=== PATIENT | female | born 1960 | race Caucasian/White ===

== ENCOUNTER → 2020-01-18 | Outpatient (CLI) | payer MEDICARE, BC ==
[~2020-01-18] MED LIST: AMITRIPTYLINE H10 M1 PO; AMLODIPINE BESY10 MG PO; CARVEDILOL12.5 MG PO; CARVEDILOL25 MG PO; COLACE 100 MG100 MG PO; DIALYVITE 8000.8 M1 PO; FLONASE 0.05%50 MCG NASAL; LANTUS SUBQ; LIPITOR 40 MG T40 M1 PO; NEXIUM20 MG PO; NOVOLOG100 UNIT/1 SUBQ; PROAIR HFA8.5 GM INH; ROCALTROL0.25 MCG PO; SENNA PLUS 8.61 EACH PO; SYMBICORT160 MCG/4. INH; TAMSULOSIN HCL0.4 MG PO; VITAMIN D21250 MC1 PO; VITAMIN D350 MC3 PO; ZYRTEC10 M2 PO
== END ==
LOC: M.LAB 10:40
PROVIDERS: ATTEND Internal Medicine Gastroenterology
DX: Z01.812 Encounter for preprocedural laboratory examination (principal); Z11.59 Encounter for screening for other viral diseases; K21.9 Gastro-esophageal reflux disease without esophagitis

== ENCOUNTER → 2020-01-23 | Day surgery (SDC) | payer MEDICARE, BC ==
[~2020-01-23] MED LIST changes: +VITAMIN D3 COM1 EACH PO
--- NOTE | ~2020-01-23 | PROC ---
[address] [address] PROCEDURE REPORT Name: ULISES ESCALANTE Room: [facility].#: [id number] Admission: 01/23/20 Attend Phys: Bradley Carl MD Discharge: Date of : 56 Report #: [id number] THIS REPORT FOR: //name// cc: Camelia Islas MD, Ghazal A. MD ~ THIS REPORT FOR: //name// For GI report, please see the [employer] report in [employer] content. By: 0658Medical Records Staff LENARD /TITA
[2020-01-23 08:56] LABS: HEMATOCRIT 34.3 % (37.0-47.0); MCH 31.4 pg (26.0-34.0); MCHC 35.1 g/dL (28.0-37.0); MCV 89.4 fL (80.0-100.0); MPV 6.8 fl. (7.2-11.1); RBC 3.84 mil/uL (4.20-5.00); RDW-CV 13.9 % (10.5-14.5); WBC 8.6 thou/uL (4.0-11.0)
[2020-01-23 09:07] LABS: CALCIUM 8.8 mg/dL (8.5-10.1); POTASSIUM 3.8 mmol/L (3.5-5.1)
--- NOTE | 2020-01-24 17:33 | EKG ---
[place] [address] ELECTROCARDIOGRAM REPORT Name: ULISES ESCALANTE Room: [facility]#: [id number] Admission: 01/23/20 Attend Phys: Bradley Carl, Discharge: Date of : 56 Date of Service: 01/23/20920 Report #: [id number] THIS REPORT FOR: //name// [facility] Test Date: 2020-01-23 Test Time: 09:21:00 Pat Name: ULISES ESCALANTE Department: Room: Gender: F Shift Commander: : 1960 Requested By: Ricardo Malagon Order Number: [id number] Shaila MD: Miguelangel Loja Measurements Intervals [place] Rate: 72 P: 38 [place]: 175 QRS: 1 QRSD: 90 T: 54 QT: 423 QTc: 463 Interpretive Statements Sinus rhythm No previous ECG available for comparison Electronically Signed On 01-24-2020 17:33:02 CDT by Miguelangel Loja [email or web address] <ELECTRONICALLY SIGNED> By: Miguelangel Loja MD, [facility] 01/24/20 1733 0 0 Miguelangel Loja MD, FACC /EPI
== END | disposition home or self-care (01) ==
LOC: M.SUR 08:40
PROVIDERS: Anesthesiology; ATTEND Internal Medicine Gastroenterology
DX: Z12.11 Encounter for screening for malignant neoplasm of colon (principal); R12 Heartburn; K31.7 Polyp of stomach and duodenum; K63.89 Other specified diseases of intestine; K21.9 Gastro-esophageal reflux disease without esophagitis; I25.10 Atherosclerotic heart disease of native coronary artery without angina pectoris; I50.9 Heart failure, unspecified; Z88.1 Allergy status to other antibiotic agents; Z88.2 Allergy status to sulfonamides; Z79.899 Other long term (current) drug therapy; Z98.890 Other specified postprocedural states